=== PATIENT | female | born 2000 | race Asian ===

== ENCOUNTER 2025-09-18 23:25 | Emergency (ER) | payer OTHER, SELFPAY ==
[2025-09-18 23:26] VITALS: BP 131/85; PULSE 64; RESP 16; TEMP 36.6; O2SAT 99; BMI 19.5
== END 2025-09-19 01:15 | disposition home or self-care (01) ==
PROVIDERS: Emergency Provider Emergency Medicine; Visit Provider Emergency Medicine
DX: T25.222A Burn of second degree of left foot, initial encounter (principal); T25.221A Burn of second degree of right foot, initial encounter; T21.25XA Burn of second degree of buttock, initial encounter; T24.212A Burn of second degree of left thigh, initial encounter; X11.8XXA Contact with other hot tap-water, initial encounter
CPT/HCPCS: 96372; 99282

== ENCOUNTER 2025-09-25 08:53 | Outpatient (RCR) | payer OTHER, SELFPAY ==
[2025-09-25 09:35] VITALS: BP 115/81; PULSE 64; RESP 18; TEMP 36.6; BMI 19.5
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
--- NOTE | 2025-09-26 11:38 | WC ---
PHOTO-RIGHT FOOT 09/25/25
--- NOTE | 2025-09-26 11:41 | WC ---
PHOTO-LEFT FOOT 09/25/25
--- NOTE | 2025-09-26 11:47 | WC ---
PHOTO-RIGHT BUTTOCK 09/25/25
--- NOTE | 2025-09-26 11:49 | WC ---
PHOTO-LEFT HALLUX/BUTTOCKS 09/25/25
== END 2025-09-27 23:59 | disposition home or self-care (01) ==
LOC: WC 08:53
PROVIDERS: PCP Registered Nurse; Referring Provider Registered Nurse; Visit Provider Nurse Practitioner
DX: S90.821A Blister (nonthermal), right foot, initial encounter (principal); Z79.891 Long term (current) use of opiate analgesic; M25.571 Pain in right ankle and joints of right foot; X12.XXXA Contact with other hot fluids, initial encounter; T24.212A Burn of second degree of left thigh, initial encounter; T21.25XA Burn of second degree of buttock, initial encounter
CPT/HCPCS: 97597; 97598; 99213; G0463